=== PATIENT | male | born 1995 | race African-American/Black ===

== ENCOUNTER 2018-12-16 18:30 | Emergency (ER) | payer OTHER ==
[~2018-12-16] VITALS: Ht 177.8 cm; Wt 77.7 kg
[2018-12-16 18:31] VITALS: BP 118/60
[2018-12-16] MEDS ORDERED: LIDOCAINE 4% CREAM 5GM (LMX4) TOP ONE (19:00)
[2018-12-16] MEDS ORDERED: LIDOCAINE 4% TOPICAL SOLN 50 ML BTL TOP ONE (19:00)
[2018-12-16] MEDS ORDERED: LIDO2SOL9 TOP (19:20)
[2018-12-16] MEDS ORDERED: ACYC400T PO (19:20)
== END 2018-12-16 19:28 | disposition home or self-care (01) ==
LOC: M ED 18:30
DX: L03.324 Acute lymphangitis of groin (principal); B00.9 Herpesviral infection, unspecified

== ENCOUNTER 2019-07-10 10:54 | Emergency (ER) | payer OTHER ==
[~2019-07-10] VITALS: Ht 177.8 cm; Wt 78.2 kg
[~2019-07-10 10:54] MED LIST: ACYC400T PO; LIDO2SOL9 TOP
[2019-07-10] MEDS ORDERED: ONDANSETRON 4MG/2ML VIAL (J2405) IV ONE (11:30)
[2019-07-10 11:58] LABS: BASO % 0.1 % (0.0-1.0); EOS % 0.4 % (0.0-3.0); HEMATOCRIT 48.5 % (42.0-52.0); HEMOGLOBIN 16.4 g/dl (13.5-17.5); LYMPH # 0.5 10^3/uL (1.5-5.0); LYMPH % 5.1 % (24.0-44.0); MEAN CORPUSCULAR HEMOGLOBIN 30.3 pg (27.0-33.0); MEAN CORPUSCULAR HGB CONC 33.8 g/dl (32.0-36.5); MEAN CORPUSCULAR VOLUME 89.6 fl (80.0-96.0); MONO # 0.6 10^3/uL (0.0-0.8); MONO % 6.5 % (0.0-5.0); NEUTROPHILS # 8.3 10^3/uL (1.5-8.5); NEUTROPHILS % 87.6 % (36.0-66.0); PLATELET COUNT, AUTOMATED 227 10^3/uL (150-450); RED BLOOD COUNT 5.41 10^6/uL (4.30-6.10); WHITE BLOOD COUNT 9.5 10^3/uL (4.0-10.0)
[2019-07-10 12:29] LABS: ALBUMIN 4.2 GM/DL (3.2-5.2); ALT/SGPT 25 U/L (12-78); BILIRUBIN,DIRECT 0.4 MG/DL (0.0-0.2); BILIRUBIN,TOTAL 1.3 MG/DL (0.2-1.0); BLOOD UREA NITROGEN 12 MG/DL (7-18); CALCIUM LEVEL 9.7 MG/DL (8.5-10.1); CARBON DIOXIDE LEVEL 24 MEQ/L (21-32); CHLORIDE LEVEL 108 MEQ/L (98-107); GLOMERULAR FILTRATION RATE > 60.0 (>60); GLUCOSE, FASTING 80 MG/DL (70-100); LIPASE 73 U/L (73-393); POTASSIUM SERUM 3.7 MEQ/L (3.5-5.1); SODIUM LEVEL 137 MEQ/L (136-145)
--- NOTE | 2019-07-10 13:19 | REP ---
Portable chest: Single view. History: Chest pain. Comparison study: No comparison study. Findings: Monitoring electrodes are seen. Lungs are well inflated and clear. The pleural angles are sharp. Heart size is normal. Pulmonary vasculature is not increased. No bony abnormality. Impression: Negative portable chest x-ray. Electronically Signed by Kam Valle MD 07/10/2019 01:11 P
[2019-07-10] MEDS ORDERED: ISOVUE-370 76% 100ML VIAL (Q9967) As Ordered ONE ×2 (13:39→14:08)
[2019-07-10 15:25] LABS: ABG BASE EXCESS -4.1 (-2.0-2.0); ABG HCO3 16.8 MEQ/L (22.0-26.0); ABG O2 SATURATION 99.3 % (95.0-99.0); ABG PARTIAL PRESSURE CO2 22.2 mmHg (35.0-45.0); ABG PARTIAL PRESSURE O2 143.5 mmHg (75.0-100.0); ABG STANDARD HCO3 21.2 MEQ/L (22.0-26.0); ABG TOTAL CO2 17.4 MEQ/L (22.0-29.0); ABG pH (ARTERIAL) 7.496 UNITS (7.350-7.450)
--- NOTE | 2019-07-10 15:26 | REP ---
REASON: Right pleuritic chest pain. Assess for pulmonary embolism. The examination could not be performed. Attempts were made at establishing and maintaining intravenous access. These attempts failed. The examination could not be performed. There are no CT images to review. Electronically Signed by Jimmy Garcia DO 07/10/2019 03:30 P
[2019-07-10] MEDS ORDERED: ONDA4TAB6 PO (15:38)
[2019-07-10 16:27] VITALS: BP 122/60
== END 2019-07-10 17:33 | disposition home or self-care (01) ==
LOC: M ED 10:54 → EDBD 10:54 → M ED 17:33
DX: R11.2 Nausea with vomiting, unspecified (principal); R07.1 Chest pain on breathing; R05 Cough
CPT/HCPCS: 36600; 71045; 80048; 80076; 82803; 83690; 85025; 85379; 87486; 87581; 87633; 87798; 96374; 99284; J2405; Q9967; U0002

== ENCOUNTER 2020-06-28 19:19 | Emergency (ER) | payer OTHER ==
[~2020-06-28] VITALS: Ht 180.3 cm; Wt 84.1 kg
[2020-06-28 19:19] VITALS: BP 145/95
[~2020-06-28 19:19] MED LIST changes: +ONDA4TAB6 PO
[2020-06-28 20:55] LABS: BASO % 0.1 % (0.0-1.0); EOS # 0.2 10^3/uL (0.0-0.5); EOS % 2.2 % (0.0-3.0); HEMATOCRIT 45.3 % (42.0-52.0); LYMPH # 2.5 10^3/uL (1.5-5.0); LYMPH % 34.3 % (24.0-44.0); MEAN CORPUSCULAR HEMOGLOBIN 30.6 pg (27.0-33.0); MEAN CORPUSCULAR HGB CONC 33.1 g/dl (32.0-36.5); MEAN CORPUSCULAR VOLUME 92.4 fl (80.0-96.0); MONO # 0.7 10^3/uL (0.0-0.8); MONO % 9.4 % (2.0-8.0); NEUTROPHILS # 3.9 10^3/uL (1.5-8.5); NEUTROPHILS % 53.7 % (36.0-66.0); PLATELET COUNT, AUTOMATED 247 10^3/uL (150-450); WHITE BLOOD COUNT 7.3 10^3/uL (4.0-10.0)
--- NOTE | 2020-06-28 21:17 | REPVR ---
PROCEDURE INFORMATION: Exam: XR Chest Exam date and time: 06/28/2020 8:31 PM Age: 24 years old Clinical indication: Shortness of breath; Additional info: SOB, productive cough TECHNIQUE: Imaging protocol: XR of the chest Views: 2 views. COMPARISON: ME Chest, 1 view 07/10/2019 12:56 PM FINDINGS: Lungs: The lungs appear clear. Pleural spaces: There is no evidence of pneumothorax or pleural effusion. Heart/Mediastinum: The heart is normal in size. Bones/joints: There is no evidence of bony abnormality. IMPRESSION: Clear appearing lungs. Electronically signed by: Hussain Alexandra On 06/28/2020 21:17:40 PM
[2020-06-28 21:37] LABS: ALBUMIN 3.9 GM/DL (3.2-5.2); ALT/SGPT 20 U/L (12-78); BILIRUBIN,DIRECT 0.1 MG/DL (0.0-0.2); BILIRUBIN,TOTAL 0.4 MG/DL (0.2-1.0); BLOOD UREA NITROGEN 13 MG/DL (7-18); CARBON DIOXIDE LEVEL 26 MEQ/L (21-32); CHLORIDE LEVEL 106 MEQ/L (98-107); CK-MB VALUE MASS < 1.0 NG/ML (<3.6); CPK CREATINE PHOSPHOKINASE 164 U/L (39-308); CREATININE FOR GFR 1.15 MG/DL (0.70-1.30); GLOMERULAR FILTRATION RATE > 60.0 (>60); GLUCOSE, FASTING 78 MG/DL (70-100); MB/CK RELATIVE INDEX 0.61 (< OR =4); POTASSIUM SERUM 3.9 MEQ/L (3.5-5.1); SODIUM LEVEL 137 MEQ/L (136-145); TOTAL PROTEIN 7.5 GM/DL (6.4-8.2); TROPONIN I < 0.02 NG/ML (< 0.10)
--- NOTE | 2020-06-28 22:49 | ECGEPIP ---
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
== END 2020-06-28 23:01 | disposition left against medical advice (07) ==
LOC: M ED 19:19
DX: Z53.21 Procedure and treatment not carried out due to patient leaving prior to being seen by health care provider (principal)